=== PATIENT | female | born 1965 | race Caucasian/White ===

== ENCOUNTER 2019-05-20 13:11 | Emergency (ER) | payer OTHER, SELFPAY ==
[2019-05-20] VITALS (23 sets, daily range): BP systolic 104–126; BP diastolic 60–87; PULSE 79–124; RESP 11–31; TEMP 36.8; O2SAT 96–97
--- NOTE | ~2019-05-20 | CT_ITS ---
EXAMINATION: CT brain wo con DATE: 05/20/2019 13:50 INDICATION: Fall. Head injury. TECHNIQUE: Computed tomography (CT) of the head was performed without intravenous contrast. The mA wa s adjusted according to patient size. Iterative reconstruction technique was employed. Exam dose: 60 5.33 mGy-cm total exam DLP. COMPARISON: None FINDINGS: There is a posterior left high parietal cephalhematoma and mild subcutaneous emphysema of t he scalp. No intracranial coup or contrecoup injuries are evident. No skull fracture is detected. N o subdural or epidural hematoma is detected. No intracranial mass lesion or hemorrhage or cerebrovascular accident is detected. There is no midlin e shift or mass effect. Bilateral carotid siphon internal carotid artery calcifications. There is nonspecific diminished atte nuation of the cerebral white matter, likely due to chronic small vessel ischemic changes. The included paranasal sinuses and mastoid air cells are normally developed and aerated. IMPRESSION: High right posterior parietal cephalohematoma subcutaneous scalp emphysema; no skull fra cture or acute intracranial finding Reviewed, dictated and finalized at [facility]. Reviewed, dictated and finalized at location B. AL WORK PROFESSOR IMPRESSION: High right posterior parietal cephalohematoma subcutaneous scalp e mphysema; no skull fracture or acute intracranial finding
--- NOTE | ~2019-05-20 | XR_ITS ---
EXAMINATION: XR wrist RT min 3V DATE: 05/20/2019 13:49 INDICATION: Right wrist pain. TECHNIQUE: 4 views of right wrist were obtained. COMPARISON: None. FINDINGS: Bone alignment is normal. No fracture. There is mild osteoarthritis of first carpometacarpa l joint and radiolunate joint. IMPRESSION: 1. Mild polyarticular osteoarthritis. Reviewed, dictated and finalized at location A. BILITATION AIDE
--- NOTE | 2019-05-20 13:18 | ED.OVERDOSE ---
HPI - Overdose General Chief Complaint: Overdose <Stephanie Mccarty MD - Last Filed: 05/20/19 23:35> Stated Complaint: SI <Stephanie Mccarty MD - Last Filed: 05/20/19 23:35> Time Seen by Provider: 05/20/19 13:20 <Stephanie Mccarty MD - Last Filed: 05/20/19 23:35> Source: patient <Stephanie Mccarty MD - Last Filed: 05/20/19 23:35> Mode of arrival: EMS <Stephanie Mccarty MD - Last Filed: 05/20/19 23:35> Limitations: no limitations <Stephanie Mccarty MD - Last Filed: 05/20/19 23:35> History of Present Illness HPI Narrative: The pt is a 53 y/o female who presents to the ED, via EMS, with c/o an intentional OD that occurred this morning. The pt states that she ingested a handful of Lorazepam pills when she got up this morning. She is unable to say how much she took but also notes that she drank half a bottle of Listerine mouth wash last night. The pt states that she ingested these because she wanted to end her life. She says, life is just too much for me and I'm alone . She has 8 siblings and 3 children, but does not live with any of her children. Her son was the one who called EMS today. The pt reports SI and a posterior scalp laceration from falling yesterday, but denies neck pain, CP, ABD pain, HI, cough, HERNANDEZ, or rash. She states that she has never tried to kill herself before and that her Tetanus shot is up to date. She has a PMHx of depression and anxiety and her PCP is Dr. Neptali Machuca at [facility]. <Stephanie Mccarty MD - Last Filed: 05/20/19 23:35> MD complaint: intentional overdose <Stephanie Mccarty MD - Last Filed: 05/20/19 23:35> Onset (ago): hour(s) (this morning) <Stephanie Mccarty MD - Last Filed: 05/20/19 23:35> Intent: suicide attempt <Stephanie Mccarty MD - Last Filed: 05/20/19 23:35> Context: Intentional Overdose: other ( life is too much for me and I'm alone ) <Stephanie Mccarty MD - Last Filed: 05/20/19 23:35> Associated symptoms: other (SI, posterior scalp laceration) <Stephanie Mccarty MD - Last Filed: 05/20/19 23:35> Related Data Home Medications: Home Medications Medication Instructions Recorded Confirmed alprazolam 05/20/19 clomipramine 05/20/19 clonazepam 05/20/19 ergocalciferol (vitamin D2) 05/20/19 ferrous sulfate 05/20/19 levothyroxine 05/20/19 lorazepam 05/20/19 paroxetine HCl mg PO 05/20/19 <Stephanie Mccarty MD - Last Filed: 05/20/19 23:35> Allergies/Adverse Reactions: Allergies Allergy/AdvReac Type Severity Reaction Status Date / Time No Known Allergies Allergy Verified 05/20/19 17:57 <Stephanie Mccarty MD - Last Filed: 05/20/19 23:35> Review of Systems Review of Systems: Narrative: CARDIOVASCULAR: Denies chest pain. RESPIRATORY: Denies cough. GASTROINTESTINAL: Denies abdominal pain. SKIN: Report posterior scalp laceration. Denies rash. MUSCULOSKELETAL: Denies neck pain. NEUROLOGIC: Denies headache. PSYCHIATRIC: Reports SI. Denies HI. <Stephanie Mccarty MD - Last Filed: 05/20/19 23:35> All systems reviewed & are unremarkable except as noted in HPI and below <Stephanie Mccarty MD - Last Filed: 05/20/19 23:35> [facility] Past Medical History Medical History: Medical History (Updated 05/20/19 @ 20:57 by Stephanie Mccarty MD) Anxiety Depression <Stephanie Mccarty MD - Last Filed: 05/20/19 23:35> Surgical History Surgical History: Surgical History (Updated 05/20/19 @ 14:13 by Shabana Vickers) No pertinent past surgical history <Stephanie Mccarty MD - Last Filed: 05/20/19 23:35> Social History Social History: Social History (Updated 05/20/19 @ 14:13 by Shabana Vickers) Smoking status: Current every day smoker <Stephanie Mccarty MD - Last Filed: 05/20/19 23:35> Exam Narrative: Exam Narrative: GENERAL: Well-appearing, well-nourished, and in no acute distress. HEAD: Abrasion and boggy hematoma to posterior scalp. No laceration.
--- NOTE | 2019-05-20 13:18 | ECG_ITS ---
Measurements Intervals [place] Rate: 98 P: 63 [place]: 130 QRS: 42 QRSD: 90 T: 58 QT: 337 QTc: 431 Interpretive Statements SINUS RHYTHM POSSIBLE LEFT ATRIAL ENLARGEMENT NONSPECIFIC ST & T-WAVE ABNORMALITY- INF/LAT LEADS BORDERLINE ECG Electronically Signed On 05-20-2019 15:40:51 CYBER INSTRUCTOR by Truong Lehman D.O.
[2019-05-20] MEDS: SODIUM CHLORIDE 0.9% IV 1,000 ML 999 ML IV CONT (13:44)
[2019-05-20 14:03] LABS: Glucose Point of Care 75 (65-105)
--- NOTE | 2019-05-20 14:05 | PC.NURSE ---
[place] [facility] notified of pt's overdose - discussed with MARIA L Perkins, who had no new recommendations or orders from what was already being done. Maddie stated that she would follow up and call back Harman this afternoon with lab updates.
[2019-05-20 14:11] LABS: Basophils Percent Auto 0.6 % (0.2-1.2); Eosinophils Absolute Auto 0.1 K/mm3 (0-0.3); Eosinophils Percent Auto 0.8 % (0-4.4); Hematocrit 35.2 % (37.0-47.0); Hemoglobin 11.9 g/dL (12.0-15.0); Immature Granulocyte Absolute 0.02 K/mm3 (0.00-0.031); Immature Granulocyte Percent A 0.3 % (0-0.5); Lymphocytes Absolute Auto 1.85 K/mm3 (0.9-3.2); Lymphocytes Percent Auto 29.6 % (18.3-44.2); Mean Corpuscular HGB Conc 33.8 g/dl (32-36); Mean Corpuscular Volume 91.7 fl (80-100); Mean Platelet Volume 8.2 fl (7.4-10.4); Monocytes Absolute Auto 0.4 K/mm3 (0.1-0.6); Monocytes Percent Auto 6.2 % (2.6-8.5); Neutrophils Absolute Auto 3.9 K/mm3 (1.3-6.7); Neutrophils Percent Auto 62.5 % (45.5-73.1); Platelet Count Result 308 k/mm3 (150-375); Red Blood Count 3.84 M/mm3 (4.2-5.4); Red Cell Distribution Width 13.9 % (11.5-14.5); White Blood Count 6.3 K/mm3 (4.5-10.0)
[2019-05-20 14:24] LABS: Alanine Aminotransferase 21 U/L (4-35); Albumin Level 4.3 g/dL (3.5-5.1); Alkaline Phosphatase 88 U/L (38-126); Aspartate Amino Transferase 45 U/L (14-36); Bilirubin,Total 0.1 mg/dL (0.2-1.3); Blood Urea Nitrogen 11 mg/dL (7-17); Calcium 8.5 mg/dL (8.4-10.2); Carbon Dioxide 23 mmol/L (22-30); Chloride 100 mmol/L (98-107); Creatine Kinase 201 U/L (30-135); Estimated CRCL calculation 60 ml/min; Estimated Glomerular Filt Rate > 60; Glucose 79 mg/dL (65-105); Potassium 4.1 mmol/L (3.4-5.0); Sodium 137 mmol/L (137-145)
[2019-05-20 14:29] LABS: Acetaminophen < 10 ug/mL (10-30); Ethanol 266 mg/dL (<10); Salicylate 1.1 mg/dL (2-20)
[2019-05-20 15:11] LABS: Thyroid Stimulating Hormone Reflex 0.915 uIU/mL (0.465-4.68)
[2019-05-20 15:29] LABS: Add Urine Microscopic? YES; Appearance Urine Clear (Clear); Bilirubin Urine Negative (Negative); Blood Urine 1+ (Negative); Color Urine Straw (Yellow); Glucose Urine UA Negative (Negative); Ketones Urine Negative (Negative); Leukocyte Esterase Ur 1+ LEU/UL (Negative); Mucus Urine Rare /lpf; Nitrate Urine Negative (Negative); Protein Urine Negative (Negative); RBC Urine 0-2 /hpf (0-2); Specific Grav Ur 1.008 (1.001-1.035); Squamous Epithelial Cell Urine Occasional /hpf (Few); Urobilinogen Urine Negative mg/dL (<2.0); WBC Urine 0-3 /hpf
[2019-05-20 15:42] LABS: Amphetamine Screen Urine Negative (Negative); Barbiturate Screen Urine Negative (Negative); Benzodiazepines Screen Urine Negative (Negative); Cannabinoid Screen Urine Negative (Negative); Cocaine Screen Urine Negative (Negative); Methadone Screen Urine Negative (Negative); Opiate Screen Urine Negative (Negative); Phencyclidine Screen Urine Negative (Negative)
--- NOTE | 2019-05-20 16:37 | PC.NURSE ---
MARIA L Padgett, with [place] [facility] called to check on pt. Toxicology and vital signs and general pt condition reviewed with Dayron. Dayron had no further recommendations or comments at this time.
--- NOTE | 2019-05-20 16:58 | PC.NURSE ---
Talked with MARIA L Padgett, at [place] [facility] who stated that the pt is clear from their standpoint for medical clearance and crisis/psych evaluation. Poison control has no further recommendations or requirements at this time - pt is clear on their end.
--- NOTE | 2019-05-20 17:12 | PC.NURSE ---
Pt's sister, Lucy, called for information. No information provided to Lucy who thought that pt was here due to a fall. Pt states she is not ready to call Lucy or other family back. Lucy's number: [phone].
--- NOTE | 2019-05-20 19:30 | PC.NURSE ---
Assumed care of patient from MARIA L Weller. Patient resting in stretcher in NAD, visitor and sitter at bedside. VSS, call light within reach. Pt ambulated to restroom and back with sitter. Patient denies other needs at this time, will continue to monitor.
[2019-05-20 20:23] LABS: Acetaminophen < 10 ug/mL (10-30); Ethanol 97 mg/dL (<10); Salicylate < 1.0 mg/dL (2-20)
[2019-05-20 22:52] LABS: Ethanol 25 mg/dL (<10)
--- NOTE | 2019-05-20 23:02 | PC.NURSE ---
called crisis [phone] they will send someone out to evaluate pt
[2019-05-21] VITALS (36 sets, daily range): BP systolic 131–163; BP diastolic 77–108; PULSE 70–126; RESP 13–35; TEMP 37–37.1; O2SAT 98–100
--- NOTE | 2019-05-21 00:30 | PC.NURSE ---
Keyanna with Crisis at bedside to evaluate patient, recommends inpatient treatment. Patient agreeable to be transferred at this time.
--- NOTE | 2019-05-21 01:52 | PC.NURSE ---
[facility] called, states their doctor denied admission based on criteria not being met.
[2019-05-21] MEDS: ACETAMINOPHEN 500 MG TABLET 1000 MG PO (01:59)
--- NOTE | 2019-05-21 02:24 | PC.NURSE ---
[facility] requested the following information be faxed: test, SHANE, labs, recent vital signs, UDS, nurse's notes, doctor's notes, medication list, and proof of medical clearance. All information faxed to .
--- NOTE | 2019-05-21 02:36 | PC.NURSE ---
Marvin from [facility] called to state they do not have an appropriate bed for this patient.
--- NOTE | 2019-05-21 05:53 | PC.NURSE ---
Per Alla at [facility] declined this patient. Crisis contacted and updated that patient has been declined at all hospitals.
--- NOTE | 2019-05-21 09:08 | PC.NURSE ---
chart faxed to [facility] in [place] [phone]
--- NOTE | 2019-05-21 10:00 | PC.NURSE ---
chart faxed to [facility]
--- NOTE | 2019-05-21 12:00 | PC.NURSE ---
pt moved to . chart faxed to [facility] in [place]
--- NOTE | 2019-05-21 13:08 | PC.NURSE ---
[facility] contacted ed. pt will be accepted. face sheet and voluntary admission paperwork faxed
--- NOTE | 2019-05-21 15:34 | PC.NURSE ---
pt remains appropriate and cooperative. family at bedside. waiting ems transport to [facility] psych
--- NOTE | 2019-05-21 16:47 | PC.NURSE ---
status update on eta for hayden additional 45 min
--- NOTE | 2019-05-21 16:58 | PC.NURSE ---
ems delayed states transport will be another hour
--- NOTE | 2019-05-21 17:41 | PC.NURSE ---
[facility] called for status ETA of 183
--- NOTE | 2019-05-21 18:02 | PC.NURSE ---
ems transport again delayed until 1829. pt remains pleasant and cooperative
[2019-05-25 08:28] LABS: Methyl Alcohol Level None Detected (None Detected)
== END 2019-05-21 18:48 ==
PROVIDERS: Emergency Medicine; Emergency Provider Emergency Medicine
DX: T42.4X2A Poisoning by benzodiazepines, intentional self-harm, initial encounter (principal); F10.10 Alcohol abuse, uncomplicated; F41.9 Anxiety disorder, unspecified; F32.9 Major depressive disorder, single episode, unspecified; M19.031 Primary osteoarthritis, right wrist; Y90.8 Blood alcohol level of 240 mg/100 ml or more
CPT/HCPCS: 36415; 70450; 73110; 80053; 80307; 81001; 81025; 82550; 82948; 84443; 84600; 85025; 93005; 96360; 99285; A9270; J7030

== ENCOUNTER 2020-03-20 11:16 | Observation (INO) | payer SELFPAY ==
[2020-03-20] VITALS (11 sets, daily range): BP systolic 80–130; BP diastolic 57–86; PULSE 70–133; RESP 16–20; TEMP 36.4–36.8; O2SAT 94–100; BMI 28.0
--- NOTE | ~2020-03-20 | CT_ITS ---
EXAMINATION: CT BRAIN W/O DATE: 03/20/2020 12:49 INDICATION: Head injury after fall TECHNIQUE: Computed tomography (CT) of the head was performed without intravenous contrast. The dose- length product was 605.33 mGy-cm. Automated exposure control and iterative reconstruction technique w ere employed. COMPARISON: CT dated 05/20/2019 FINDINGS: Normal brain parenchymal volume for age. Normal lebron-white differentiation. No acute intrac ranial hemorrhage, infarction, mass or mass effect. No ventriculomegaly or midline shift. Midline sagittal images demonstrate a normal corpus callosum, c raniovertebral junction and sella turcica. Basilar cisterns are patent. Paranasal sinuses and mastoids are pneumatized. No depressed skull fractures. IMPRESSION: 1. No acute intracranial abnormality. Reviewed, dictated and finalized at location A. LESOFT HCM DEVELOPER
--- NOTE | ~2020-03-20 | US_ITS ---
EXAMINATION: US carotid duplex BI DATE: 03/21/2020 14:26 INDICATION: Vertigo. Loss of balance. TECHNIQUE: Grayscale, color Doppler, and pulsed Doppler images of the cervical carotid arteries were obtained. The degree of vessel stenosis is placed in one of the following categories: normal, <50%, 5 0-69%, >=70% but less than near-occlusion, near-occlusion, or total occlusion. Note that percent sten osis relative to normal distal artery lumen diameter is indirectly measured from velocity measurement s as described by Cesar, et al. Radiology 2003; 229:340-346. COMPARISON: None. FINDINGS: RIGHT: The right common carotid artery (CCA) peak systolic velocity (PSV) is 73 cm/s. The right internal car otid artery (ICA) PSV is 47 cm/s. The right ICA end-diastolic velocity (EDV) is 19 cm/s. The right IC A/CCA PSV ratio is 0.7. Grayscale and color Doppler images demonstrate no evident stenosis or plaque in the ICA. The external carotid artery (ECA) PSV is 52 cm/s. There is antegrade flow in the right ve rtebral artery. LEFT: The left CCA PSV is 78 cm/s. The left ICA PSV is 52 cm/s. The left ICA EDV is 21 cm/s. The left ICA/C CA PSV ratio is 0.7. Grayscale and color Doppler images of the straight no evident stenosis or plaque in the ICA. The ECA PSV is cm/s. There is antegrade flow in the left vertebral artery. IMPRESSION: 1. No evident plaque or stenosis in the right internal carotid artery. 2. No evident plaque or stenosis in the left internal carotid artery. Reviewed, dictated and finalized at location A. EN FOODS MANAGER
--- NOTE | ~2020-03-20 | MR_ITS ---
EXAMINATION: MR brain/brain stem wo/w con DATE: 03/21/2020 12:49 INDICATION: Syncope. Head injury. TECHNIQUE: Magnetic resonance imaging (MRI) of the brain and brainstem was performed without and with 13 mL MultiHance intravenous contrast. Sequences included sagittal and axial T1-weighted FSE, axial diffusion-weighted FS EPI, axial T2*-weighted GRE, axial T2-weighted FLAIR Propeller, and axial T2-we ighted Propeller. Postcontrast sequences included axial, sagittal, and coronal T1-weighted FSE. Appar ent diffusion coefficient (ADC) maps were created. COMPARISON: Head CT 03/20/2020 FINDINGS: There is no intracranial hemorrhage, acute infarction, or abnormal intracranial mass lesion . The ventricles are normal in size. The paranasal sinuses are clear. The mastoid air cells are kassidy l. The orbits are normal. IMPRESSION: 1. Normal brain. Reviewed, dictated and finalized at location B. ITTER IMPRESSION: 1. Normal brain.
--- NOTE | ~2020-03-20 | CT_ITS ---
EXAMINATION: CT cervical spine wo con DATE: 03/20/2020 12:49 INDICATION: Neck pain after fall TECHNIQUE: Computed tomography (CT) of the cervical spine was performed without intravenous contrast. The dose-length product was 228 mGy-cm. Automated exposure control and iterative reconstruction tech nique were employed. COMPARISON: None FINDINGS: Straightening of cervical lordosis, likely due to muscle spasm or patient positioning. Vert ebral body heights are maintained. No significant disc narrowing. Small marginal osteophytes are pres ent at C6-7. No acute fracture or traumatic malalignment. Mild uncinate degenerative changes at C5-6 and C6-7. Odontoid process within normal limits. No evidence for perched facet. Lung apices are kassidy l. No significant paraspinal soft tissue abnormality. IMPRESSION: 1. No acute abnormality of the cervical spine. Reviewed, dictated and finalized at location A. FIELDER
--- NOTE | 2020-03-20 11:35 | ECG_ITS ---
Measurements Intervals [place] Rate: 80 P: 63 [place]: 114 QRS: 22 QRSD: 93 T: 65 QT: 380 QTc: 439 Interpretive Statements SINUS RHYTHM WITH SHORT FL INTERVAL POSSIBLE LEFT ATRIAL ENLARGEMENT NONSPECIFIC ST & T-WAVE ABNORMALITY- DIFFUSE LEADS BASELINE ARTIFACT- I, II, III, AVR, AVL, V4-V5 BORDERLINE ECG Electronically Signed On 03-20-2020 14:34:13 COAL HAULER by Truong Lehman D.O.
[2020-03-20 11:56] LABS: Basophils Percent Auto 0.4 % (0.2-1.2); Eosinophils Percent Auto 0.3 % (0-4.4); Hemoglobin 12.1 g/dL (12.0-15.0); Immature Granulocyte Absolute 0.03 K/mm3 (0.00-0.031); Immature Granulocyte Percent A 0.4 % (0-0.5); Immature Platelet Fraction Pct 6.3 % (0.9-11.2); Lymphocytes Absolute Auto 1.11 K/mm3 (0.9-3.2); Lymphocytes Percent Auto 14.5 % (18.3-44.2); Mean Corpuscular HGB Conc 35.6 g/dl (32-36); Mean Corpuscular Hemoglobin 32.5 pg (26-34); Mean Corpuscular Volume 91.4 fl (80-100); Monocytes Absolute Auto 0.5 K/mm3 (0.1-0.6); Monocytes Percent Auto 6.1 % (2.6-8.5); Neutrophils Percent Auto 78.3 % (45.5-73.1); Platelet Count Result 110 k/mm3 (150-375); Red Blood Count 3.72 M/mm3 (4.2-5.4); Red Cell Distribution Width 14.4 % (11.5-14.5); White Blood Count 7.7 K/mm3 (4.5-10.0)
[2020-03-20 11:59] LABS: Anion Gap 13 mmol/L (8-16); Blood Urea Nitrogen 18 mg/dL (7-17); Calcium 10.2 mg/dL (8.4-10.2); Carbon Dioxide 28 mmol/L (22-30); Chloride 87 mmol/L (98-107); Estimated CRCL calculation 52 ml/min; Estimated Glomerular Filt Rate 58; Glucose 115 mg/dL (65-105); Potassium 3.6 mmol/L (3.4-5.0); Sodium 128 mmol/L (137-145)
[2020-03-20] MEDS: SODIUM CHLORIDE 0.9% IV 1,000 ML 999 ML IV CONT (12:42)
--- NOTE | 2020-03-20 12:49 | ED.GENADULT ---
HPI - General Adult General Chief complaint: Head Injury Stated complaint: fall/loss of balance Time Seen by Provider: 03/20/20 12:10 Source: patient Mode of arrival: ambulatory Limitations: no limitations History of Present Illness HPI narrative: Patient is a 54-year-old female complaining of frequent falls and loss of balance for the past 2 weeks. Patient denies any speech or visual disturbance, weakness, numbness, chest pain, shortness of breath, abdominal pain, nausea, vomiting, diarrhea, fever or chills. Related Data Home Medications Medication Instructions Recorded Confirmed buspirone mg 03/20/20 levothyroxine 03/20/20 paroxetine HCl mg PO 03/20/20 03/20/20 Allergies Allergy/AdvReac Type Severity Reaction Status Date / Time No Known Allergies Allergy Verified 03/20/20 11:23 Review of Systems Review of Systems: All systems reviewed & are unremarkable except as noted in HPI and below Constitutional: Constitutional: Denies body ache(s), Denies chills, Denies excessive sweating, Denies fatigue, Denies fever(s), Denies headache(s), Denies lethargy, Denies malaise, Denies weakness and Denies weight loss Eyes: Eyes: Denies blurry vision, Denies change in vision and Denies loss of vision ENT: Denies dizziness, Denies ear discharge, Denies headache(s), Denies lip swelling, Denies epistaxis, Denies nasal congestion, Denies neck pain, Denies throat swelling and Denies tongue swelling Cardiovascular: Cardiovascular: Denies chest pain, Denies chest pain at rest, Denies chest pain with activity, Denies diaphoresis, Denies rapid heart rate, Denies edema, Denies irregular heart rhythm, Denies lightheadedness, Denies palpitations, Denies dyspnea and Denies dyspnea on exertion Respiratory: Respiratory: Denies chest congestion, Denies cough, Denies hemoptysis, Denies dyspnea and Denies dyspnea on exertion Gastrointestinal: Gastrointestinal: Denies abdominal pain, Denies melena, Denies hematochezia, Denies diarrhea, Denies nausea, Denies vomiting and Denies hematemesis Musculoskeletal: Musculoskeletal: Denies abnormal gait, Denies deformity, Denies joint swelling, Denies limited range of motion, Denies neck pain and Denies numbness Neurologic: Denies Abnormal speech present, Denies confusion, Denies dizziness, Denies headache(s), Denies focal weakness, Denies loss of vision, Denies numbness, Denies Other visual disturbances, Denies Sensory deficit (Neuro) and Denies weakness Psychiatric: Psychiatric: Denies confusion, Denies depression, Denies auditory hallucinations, Denies homicidal ideation and Denies suicidal ideation Endocrine: Endocrine: Denies cold intolerance, Denies excessive sweating, Denies fatigue, Denies heat intolerance and Denies palpitations Hematologic/Lymphatic: Hematologic/Lymphatic: Denies easy bleeding and Denies easy bruising Allergic/Immunologic: Allergic/Immunologic: Denies lip swelling, Denies throat swelling and Denies tongue swelling PMFSH Past Medical History Medical History (Updated 03/20/20 @ 13:52 by Liam Carballo MD) Anxiety Depression Surgical History Surgical History (Updated 05/20/19 @ 14:13 by Shabana Vickers) No pertinent past surgical history Social History Social History (Updated 05/20/19 @ 14:13 by Shabana Vickers) Smoking status: Current every day smoker Gender identity (if verbalized by the patient): Female Exam Const: General: cooperative, healthy appearing, comfortable, no acute distress, well developed, alert and awake; No confusion Orientation/consciousness: oriented to person, oriented to place, oriented to time, patient oriented x3 and No confusion Limitations: no limitations HENMT: Head: normal to inspection, normocephalic and atraumatic Ears: hearing grossly normal bilaterally, TM normal on the right and TM normal on the left General nose exam: Normal external nose present, Normal nares present and No nasal discharge present Face and sinus
[2020-03-20 13:13] LABS: Add Urine Microscopic? YES; Appearance Urine Clear (Clear); Bacteria Urine Trace /hpf; Bilirubin Urine Negative (Negative); Blood Urine 2+ (Negative); Color Urine Yellow (Yellow); Glucose Urine UA Negative (Negative); Ketones Urine 1+ mg/dL (Negative); Leukocyte Esterase Ur 1+ LEU/UL (Negative); Mucus Urine Rare /lpf; Nitrate Urine Negative (Negative); Protein Urine 2+ mg/dL (Negative); Specific Grav Ur 1.017 (1.001-1.035); Squamous Epithelial Cell Urine Many /hpf (Few)
--- NOTE | 2020-03-20 13:39 | PC.NURSE ---
called chem, kae victoria TSH [id number]
--- NOTE | 2020-03-20 13:56 | PC.NURSE ---
called chem, added on EtOH [id number]
[2020-03-20 14:06] LABS: Ethanol < 10 mg/dL (<10)
--- NOTE | 2020-03-20 16:05 | ADMGEN ---
This patient, Jose Ellison, was admitted to Medical Room 251-01. Patient/family oriented to hospital policies and general routines including ID bracelet, bed and alarms, visiting hours, pain management, procedures, bathroom and other care routines, personal items, smoking policy, room service/diet, and visiting hours. Information on how to activate the Rapid Response Team has been discussed. Patient/Family are encouraged to report perceived risks to care and to ask questions if they do not understand what they are told or what they should do.
[2020-03-21] VITALS (8 sets, daily range): BP systolic 115–137; BP diastolic 81–85; PULSE 52–118; RESP 15–21; TEMP 36.4–36.8; O2SAT 99–100
--- NOTE | 2020-03-21 | ECHO_ITS ---
Patient Info Name: Jose Ellison Age: 54 years : 1965 Gender: Female Ht: 62 in Wt: 153 lbs BSA: 1.76 m2 HR: 76 bpm BP: 130 / 86 mmHg Heart Rhythm: Sinus Rhythm Technical Quality: Good Exam Date: 03/21/2020 9:39 AM Exam Location: [facility] Patient Status: Inpatient Admit Date: 03/20/2020 Staff Ordering Physician: Estela Chan NP Professor Of Fine Art: Nick Alvarado RDCS Attending Provider: Marcio Magallon PA-C Referring Physician: Rocio SHELTON; Exam Type: CA echo dop color flow w con Study Info Indications R94.31 - Abnormal electrocardiogram ECG EKG Complete two-dimensional, color flow and Doppler transthoracic echocardiogram is performed with contrast to opacify the left ventricle and to improve the deliniation of the left ventricle endocardial borders. Contrast/Agitated Saline Contrast/Ag. Saline: Definity Amount: 2.00 ml Administered By: Maribell tSark RN Existing IV Access: Yes History/Risk Factors Abnormal EKG, orthostatic HoTN. Summary 1. Left ventricular chamber dimension is normal. 2. Left ventricular systolic function is normal, estimated at 60-65%. 3. There is mildly increased left ventricular wall thickness. 4. The left ventricular diastolic function is grade I diastolic dysfunction. 5. E/e' 7 is not elevated. 6. There is trace tricuspid valve regurgitation. Left Ventricle E/e' 7 is not elevated. Left ventricular chamber dimension is normal. Left ventricular systolic function is normal, estimated at 60-65%. There is mildly increased left ventricular wall thickness. The left ventricular diastolic function is grade I diastolic dysfunction. Right Ventricle Right ventricular chamber dimension is normal. Right ventricular systolic function is normal. Left Atria Left atrial chamber dimension is normal. Right Atria Right atrial chamber dimension is normal. Aortic Valve The aortic valve is probable trileaflet. There is no aortic valve stenosis. There is no aortic valve regurgitation. Pulmonic Valve There is no pulmonic regurgitation. Mitral Valve There is no mitral valve stenosis. There is no mitral valve regurgitation. Tricuspid Valve RVSP is not calculated due to an inadequate TR jet. There is trace tricuspid valve regurgitation. Pericardium/Pleural There is no pericardial effusion. Inferior Vena Cava Normal inferior vena cava with >50% collapse upon inspiration consistent with normal right atrial pressure, 5 mmHg. Aorta The aortic root size at the sinus of Valsalva is normal. Tricuspid Valve Name Value Normal Estimated PAP/RSVP RA Pressure 5 mmHg <=5 Report Signatures
--- NOTE | 2020-03-21 00:09 | PM.IMHP ---
H&P: HPI History of Present Illness Date/Time: 03/20/20 6820 Chief complaint: Orthostatic Hypotension/T Wave Abnormality Narrative: Jose Ellison is a 54 year old female who has a history of anxiety with depression. She also has a history of hypothyroidism. The patient stated that she lost her job when COVID for started she was not able to afford her medications and she just stopped them abruptly. The patient said the last 3 weeks she restarted her medication but has not been faithful with it. She said she probably has not taken her thyroid medicine for the last week. The patient has been losing her balance for the last 2 weeks. No visual or speech problems no weakness numbness no chest pain no shortness of breath. The patient tells me that she drinks approximately 9000 mL of water a day. She told me that she could feel her blood pressure drop when she would go from a sitting to standing position. The patient stated that she lost her balance and read into the wall. She was not sure if she lost consciousness or not. The patient fell and has bruising to both arise in her nose. Platelets are 110 all. Sodium level 128. CT of the brain shows no acute intracranial abnormality. Patient denies any visual disturbances at this time. Cervical spine CT no acute abnormalities the cervical spine. Patient's blood pressure initially was 102/57 she was given IV fluids her blood pressure is now 130/86. Blood pressure got down as low as 80/66. Patient's urine has 1+ leukocytes however she has many squamous cell which could probably be contaminant. No antibiotics were started at this time. IV fluids in the emergency room. The patient is being admitted into observation statin day since 03/21/2020 Review of Systems Review of Systems: All systems reviewed & are unremarkable except as noted in HPI and below Constitutional: Constitutional: Reports as per HPI and Reports no additional constitutional complaints Eyes: Eyes: Reports as per HPI and Reports no additional eye complaints ENT: Reports system reviewed and no additional complaints, except as documented and Reports Normal hearing present Cardiovascular: Cardiovascular: Reports no additional cardiovascular complaints Respiratory: Respiratory: Reports no additional respiratory complaints and Reports no additional respiratory complaints Gastrointestinal: Gastrointestinal: Reports as per HPI and Reports no additional gastrointestinal complaints Musculoskeletal: Musculoskeletal: Reports no additional musculoskeletal complaints Integumentary/Breasts: Skin/Breast: Reports system reviewed and no additional complaints, except as docu and Reports as per HPI Neurologic: Reports system reviewed and no additional complaints, except as documented, Reports as per HPI and Reports Normal hearing present Psychiatric: Psychiatric: Reports no additional psychiatric complaints and Reports as per HPI Endocrine: Endocrine: Reports no additional endocrine complaints Hematologic/Lymphatic: Hematologic/Lymphatic: Reports no additional hematologic/lymphatic complaints Allergic/Immunologic: Allergic/Immunologic: Reports no additional allergic/immunologic complaints PMFSH Past Medical History Medical History (Updated 03/21/20 @ 00:19 by Estela Chan NP) Anxiety Depression Hypothyroidism Surgical History Surgical History (Updated 03/21/20 @ 00:18 by Estela Chan NP) History of tonsillectomy and adenoidectomy Family History Family History Mother Colon cancer Father Diabetes mellitus COPD (chronic obstructive pulmonary disease) Sibling Diabetes mellitus Hypertension High cholesterol Alzheimer disease Dementia Social History Social History (Updated 03/21/20 @ 00:21 by Estela Chan NP) Social History: The patient is currently unemployed and 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 Sh
[2020-03-21 03:03] LABS: Basophils Percent Auto 0.6 % (0.2-1.2); Eosinophils Absolute Auto 0.2 K/mm3 (0-0.3); Eosinophils Percent Auto 3.8 % (0-4.4); Hematocrit 33.7 % (37.0-47.0); Hemoglobin 11.8 g/dL (12.0-15.0); Immature Granulocyte Absolute 0.02 K/mm3 (0.00-0.031); Immature Granulocyte Percent A 0.4 % (0-0.5); Lymphocytes Absolute Auto 1.94 K/mm3 (0.9-3.2); Mean Corpuscular Hemoglobin 32.4 pg (26-34); Mean Corpuscular Volume 92.6 fl (80-100); Mean Platelet Volume 10.4 fl (7.4-10.4); Monocytes Absolute Auto 0.4 K/mm3 (0.1-0.6); Monocytes Percent Auto 8.5 % (2.6-8.5); Neutrophils Absolute Auto 2.2 K/mm3 (1.3-6.7); Neutrophils Percent Auto 45.7 % (45.5-73.1); Platelet Count Result 99 k/mm3 (150-375); Red Blood Count 3.64 M/mm3 (4.2-5.4); Red Cell Distribution Width 14.6 % (11.5-14.5); White Blood Count 4.7 K/mm3 (4.5-10.0)
[2020-03-21 03:18] LABS: Lactic Acid Reflex 0.7 mmol/L (0.7-2.1)
[2020-03-21 03:19] LABS: Alanine Aminotransferase 48 U/L (4-35); Alkaline Phosphatase 68 U/L (38-126); Anion Gap 5 mmol/L (8-16); Aspartate Amino Transferase 88 U/L (14-36); Bilirubin,Total 0.8 mg/dL (0.2-1.3); Blood Urea Nitrogen 15 mg/dL (7-17); Calcium 9.7 mg/dL (8.4-10.2); Carbon Dioxide 32 mmol/L (22-30); Chloride 95 mmol/L (98-107); Estimated CRCL calculation 57 ml/min; Estimated Glomerular Filt Rate > 60; Glucose 90 mg/dL (65-105); Magnesium 1.6 mg/dL (1.6-2.3); Potassium 3.6 mmol/L (3.4-5.0); Sodium 132 mmol/L (137-145)
[2020-03-21 03:49] LABS: Cortisol Random 7.59 ug/dL
[2020-03-21 04:39] LABS: Free T4 Free Thyroxine 0.34 ng/mL (0.78-2.19)
[2020-03-21] MEDS: SODIUM CHLORIDE 0.9% IV 1,000 ML 100 ML IV CONT (05:30)
[2020-03-21] MEDS: LEVOTHYROXINE SODIUM 150 MCG TABLET PO (05:32)
[2020-03-21 06:15] LABS: Amphetamine Screen Urine Negative (Negative); Barbiturate Screen Urine Negative (Negative); Benzodiazepines Screen Urine Negative (Negative); Cannabinoid Screen Urine Negative (Negative); Cocaine Screen Urine Negative (Negative); Methadone Screen Urine Negative (Negative); Opiate Screen Urine Negative (Negative); Phencyclidine Screen Urine Negative (Negative)
[2020-03-21] MEDS: busPIRone HCL 10 MG TABLET PO (08:08)
[2020-03-21] MEDS: PARoxetine 10 MG TABLET PO (08:08)
--- NOTE | 2020-03-21 10:04 | PM.IMPN ---
Progress Note: A&P Assessment and Plan (1) Unsteady gait: Code(s): R26.81 - Unsteadiness on feet Status: Acute Assessment and Plan: Most likely is related to her hyponatremia and hypothyroidism. CT brain unremarkable. MRI brain, carotid duplex, echo awaiting to be done. Orthostatic blood pressures have improved but still positive; asymptomatic this morning PT/OT ordered Will await imaging studies Possibly discharge in 1-2 days (2) Hyponatremia: Code(s): E87.1 - Hypo-osmolality and hyponatremia Status: Acute Assessment and Plan: Multifactorial. Likely from hypothyroidism and noncompliance with medication as she was unable to refill her prescriptions for 3 weeks. Also increased free water intake, although it seems as though she may only drink 8-9 bottles of water a day which is much less then previously described as 8-9 L. Also takes SSRI. Na 132 today. improvement Will monitor this afternoon F/u as outpatient Will advice for ~2 L water a day to stay hydrate Anticipate this improve with reinitiation of levothyroxine (3) Anxiety: Code(s): F41.9 - Anxiety disorder, unspecified Status: Chronic Assessment and Plan: Continue with BuSpar and Paxil. (4) Depression: Code(s): F32.9 - Major depressive disorder, single episode, unspecified Status: Chronic Assessment and Plan: Continue BuSpar and Paxil. (5) Hypothyroidism: Code(s): E03.9 - Hypothyroidism, unspecified Status: Chronic Assessment and Plan: Patient unable to refill her prescription due to apparent financial issues. Home Levothyroxine as been resumed Continue home levothyroxine Will recheck TSH with reflex in 4 weeks F/u with PCP. Subjective Date/time seen: 03/21/20 10:04 Interval history: Patient is a 54 yo F wit history of anxiety/depression and hypothyroidism who is seen in follow up for symptomatic orthostatic hypotension and elevated TSH due to medication noncompliance. Patient states she feels much better today. She was asymptomatic due to her orthostatic blood pressures this morning. She has no other complaints. States she drinks 8-10 bottles of water but thinks these are regular 12 oz bottles but cannot say for sure. She drinks this much to stay hydrated, and denies true polydipsia. No other complaints other a mild headache around her eyes/sinuses from when she hit her head on the wall. Denies f/c/s, current dizziness, lightheadedness, cp/palpitations, sob/cough, n/v/d/c, abd pain, changes in BMs, dysuria, hematuria, cloudy urine, calf pain/swelling. Review of Systems Review of Systems: All systems reviewed & are unremarkable except as noted in HPI and below Exam Narrative: Exam Narrative: General: Patient resting supine in bed in no acute distress. About to have Echo done HEENT: Normocephalic, EOMI, oral mucosa moist. Cardiovascular: Rate and rhythm are regular. No notable murmur, rub, or gallop. Respiratory: Lungs clear to auscultation anterolateral lung giang. Non-labored breathing. Abdomen: Soft, non-tender, non-distended, bowel sounds present. Extremities: Peripheral pulses intact. No edema. NTTP b/l calves Neuro: No focal neurological deficits. Speech is clear. Objective Data Vital Signs Vital Signs: Last Vital Signs Temp 97.6 F 03/21/20 06:06 Pulse 118 H 03/21/20 08:00 Resp 21 H 03/21/20 06:06 BP 115/81 03/21/20 06:06 Pulse Ox 100 03/21/20 06:06 Intake/Output Intake/Output: Intake & Output 03/18/20 03/19/20 03/20/20 03/21/20 23:59 23:59 23:59 23:59 Intake Total 1790 1168 Output Total 700 Balance 1790 468 Meds/Results Medications: Active Medications Generic Name Dose Route Start Last Admin Trade Name Freq PRN R
--- NOTE | 2020-03-21 13:35 | PM.DS ---
DS: Admitting Diagnosis Admitting Diagnosis Admitting Diagnosis: Orthostatic Hypotension/T Wave Abnormality DS: Discharge Diagnosis Discharge Diagnosis (1) Unsteady gait: Code(s): R26.81 - Unsteadiness on feet Status: Acute Assessment and Plan: Most likely is related to her hyponatremia and hypothyroidism. CT brain unremarkable. MRI brain unremarkable. Echo unremarkable. Carotid duplex pending. Orthostatic blood pressures have improved but still slightly positive; asymptomatic this morning, however. Discussed discharge today after afternoon BMP. Patient agreeable and comfortable. PT/OT ordered and have discharged as she has no needs D/c today back home Recommended no driving until f/u with PCP (2) Hyponatremia: Code(s): E87.1 - Hypo-osmolality and hyponatremia Status: Acute Assessment and Plan: Multifactorial. Likely from hypothyroidism and noncompliance with medication as she was unable to refill her prescriptions for 3 weeks. Also increased free water intake, although it seems as though she may only drink 8-9 bottles of water a day which is much less then previously described (8-9 L noted previously). Also takes SSRI. Na 133 this afternoon. improvement Will monitor this afternoon F/u outpatient labs and with PCP Discussed drinking ~2 L water a day to stay hydrated Anticipate this will improve with reinitiation of levothyroxine (3) Anxiety: Code(s): F41.9 - Anxiety disorder, unspecified Status: Chronic Assessment and Plan: Continue with BuSpar and Paxil. (4) Depression: Code(s): F32.9 - Major depressive disorder, single episode, unspecified Status: Chronic Assessment and Plan: Continue BuSpar and Paxil. (5) Hypothyroidism: Code(s): E03.9 - Hypothyroidism, unspecified Status: Chronic Assessment and Plan: Patient unable to refill her prescription due to apparent financial issues. Home Levothyroxine as been resumed Continue home levothyroxine Will recheck TSH with reflex in 4 weeks F/u with PCP. DS: Summary Hospital Course Reason for hospitalization: hyponatremia, orthostatic hypotension. Fall at home Hospital Course: Date of arrival: 03/20/20 Date of discharge: 03/21/20 Patient is a 54 yo F with history of anxiety/depression and hypothyroidism who presented to the ED on 03/20 with complaints of frequent falls and loss of balance the previous 2 weeks. Patient was found to be orthostatic and hyponatremic while in the ED. Patient admitted under this setting. Please see H&P for further details. Patient was admitted to the hospitalist service for further management/treatment. Patient had admitted that she had stopped taking her home medications as she was having some financial issues at home. She had missed roughly 3 weeks of her levothyroxine. She was placed back on this medication after her TSH was found to be 49.8 and free T4 of 0.34; she was to recheck her TSH in 4 weeks. In regards to her orthostasis, she was given IV fluids while in the ED, but then was placed on fluid restricted diet as it was felt that patient likely had hypervolemic hyponatremia with component of hypothyroidism lowering sodium levels, as well as, her SSRI. The following day, her orthostasis had improved but still present, but she was now asymptomatic. Her sodium had improved from 128 on arrival to 132 on morning of discharge then 133 on afternoon of discharge. Stroke work up proved unremarkable with MR of brain, Echo, and carotid doppler. Given her improvement in her symptoms and with her hyponatremia, plan was for her to follow up with her PCP, to repeat BMP in 1 week, and to drink no more than 2L of water. Patient and family were agreeable and comfortable with plan f
[2020-03-21 14:22] LABS: Anion Gap 8 mmol/L (8-16); Blood Urea Nitrogen 20 mg/dL (7-17); Calcium 9.7 mg/dL (8.4-10.2); Carbon Dioxide 29 mmol/L (22-30); Chloride 96 mmol/L (98-107); Estimated CRCL calculation 57 ml/min; Estimated Glomerular Filt Rate > 60; Glucose 88 mg/dL (65-105); Potassium 3.7 mmol/L (3.4-5.0); Sodium 133 mmol/L (137-145)
[2020-03-23 00:47] LABS: Osmolality, Urine 122 mOsm/kg (50-1200)
== END 2020-03-21 16:30 | disposition home or self-care (01) ==
LOC: ANHED 13:52 → ANH2MED 14:34
PROVIDERS: Emergency Medicine; Nurse Practitioner; Physician Assistant; Admitting Provider Internal Medicine; Emergency Provider Emergency Medicine; PCP Internal Medicine; Visit Provider Family Medicine
DX: I95.1 Orthostatic hypotension (principal); E87.1 Hypo-osmolality and hyponatremia; S09.90XA Unspecified injury of head, initial encounter; W19.XXXA Unspecified fall, initial encounter; F41.8 Other specified anxiety disorders; E03.9 Hypothyroidism, unspecified; F32.9 Major depressive disorder, single episode, unspecified; M54.2 Cervicalgia; R29.6 Repeated falls; R94.31 Abnormal electrocardiogram [ECG] [EKG]; Z91.14 Patient's other noncompliance with medication regimen; Z91.81 History of falling
CPT/HCPCS: 36415; 70450; 70553; 72125; 80048; 80053; 80307; 81001; 81025; 82533; 83605; 83735; 83935; 84439; 84443; 85025; 85055; 93005; 93880; 96360; 96361; 97161; 97165; 99285; A9270; A9577; C8929; G0378; J7030; Q9957

== ENCOUNTER 2022-06-04 18:08 | Emergency (ER) | payer MEDICAID, SELFPAY ==
[2022-06-04 18:08] VITALS: BP 113/95; PULSE 123; RESP 17; TEMP 37.6; O2SAT 97
[2022-06-04 18:35] LABS: Glucose Point of Care 91 mg/dl (65-105)
[2022-06-04 18:54] LABS: Basophils Absolute Auto 0.1 K/mm3 (0.0-0.1); Basophils Percent Auto 0.6 % (0.2-1.2); Hematocrit 37.2 % (37.0-47.0); Hemoglobin 12.5 g/dL (12.0-15.0); Immature Granulocyte Absolute 0.03 K/mm3 (0.00-0.031); Immature Granulocyte Percent A 0.4 % (0-0.5); Lymphocytes Absolute Auto 2.72 K/mm3 (0.9-3.2); Lymphocytes Percent Auto 33.7 % (18.3-44.2); Mean Corpuscular HGB Conc 33.6 g/dl (32-36); Mean Corpuscular Volume 89.2 fl (80-100); Mean Platelet Volume 8.9 fl (7.4-10.4); Monocytes Absolute Auto 0.5 K/mm3 (0.1-0.6); Monocytes Percent Auto 5.6 % (2.6-8.5); Neutrophils Absolute Auto 4.8 K/mm3 (1.3-6.7); Neutrophils Percent Auto 59.7 % (45.5-73.1); Platelet Count Result 194 k/mm3 (150-375); Red Blood Count 4.17 M/mm3 (4.2-5.4); Red Cell Distribution Width 13.3 % (11.5-14.5); White Blood Count 8.1 K/mm3 (4.5-10.0)
[2022-06-04] MEDS: SODIUM CHLORIDE 0.9% IV 1,000 ML 999 ML IV CONT (18:57)
[2022-06-04 18:59] VITALS: BP 141/88; PULSE 109; RESP 24; O2SAT 96
[2022-06-04 19:13] LABS: Alanine Aminotransferase 49 U/L (6-35); Alkaline Phosphatase 90 U/L (38-126); Anion Gap 16 mmol/L (8-16); Aspartate Amino Transferase 82 U/L (14-36); Bilirubin,Total 0.4 mg/dL (0.2-1.3); Blood Urea Nitrogen 18 mg/dL (7-17); Calcium 7.9 mg/dL (8.4-10.2); Carbon Dioxide 20 mmol/L (22-30); Chloride 108 mmol/L (98-107); Estimated CRCL calculation 64 ml/min; Estimated Glomerular Filt Rate > 60; Glucose 84 mg/dL (65-110); Potassium 4.2 mmol/L (3.4-5.0); Sodium 144 mmol/L (137-145)
[2022-06-04 19:16] LABS: Amphetamine Screen Urine Negative (Negative); Barbiturate Screen Urine Negative (Negative); Benzodiazepines Screen Urine Negative (Negative); Cannabinoid Screen Urine Negative (Negative); Cocaine Screen Urine Negative (Negative); Methadone Screen Urine Negative (Negative); Opiate Screen Urine Negative (Negative); Phencyclidine Screen Urine Negative (Negative)
[2022-06-04 19:25] LABS: Ethanol 347 mg/dL (<10)
[2022-06-04 19:30] LABS: Influenza A QL RT-PCR Negative (Negative); Influenza B QL RT-PCR Negative (Negative); RSV RNA, RT-PCR Negative (Negative); SARS-CoV-2 RNA PCR Negative
[2022-06-04 19:42] LABS: Thyroid Stimulating Hormone < 0.015 uIU/mL (0.465-4.680)
--- NOTE | 2022-06-04 19:43 | ED.PSYCH ---
HPI - Psych General Chief Complaint: Psychiatric Symptoms <Zohra Chaudhry MD - Last Filed: 06/04/22 23:20> Stated Complaint: SI, intoxicated <Zohra Chaudhry MD - Last Filed: 06/04/22 23:20> Time Seen by Provider: 06/04/22 19:35 <Zohra Chaudhry MD - Last Filed: 06/04/22 23:20> Source: patient and EMS <Zohra Chaudhry MD - Last Filed: 06/04/22 23:20> Mode of arrival: EMS <Zohra Chaudhry MD - Last Filed: 06/04/22 23:20> Limitations: no limitations <Zohra Chaudhry MD - Last Filed: 06/04/22 23:20> History of Present Illness HPI Narrative: Patient is 56 years old white female came from home by ambulance with severe depression, hopelessness and suicidal attempts by drinking too much alcohol. Patient is telling me she drank roughly 5-6 bottles of Listerine today. And been doing that daily for the last 7 days. History of depression, last psych hospitalization was 3 years ago. She denies any fever, chills, nausea, vomiting. <Zohra Chaudhry MD - Last Filed: 06/04/22 23:20> Related Data Allergies/Adverse Reactions: Allergies Allergy/AdvReac Type Severity Reaction Status Date / Time No Known Allergies Allergy Verified 06/04/22 18:34 <Zohra Chaudhry MD - Last Filed: 06/04/22 23:20> [facility] Past Medical History Medical History: Medical History (Updated 06/04/22 @ 19:47 by Zohra Chaudhry MD) Anxiety Depression Hypothyroidism <Zohra Chaudhry MD - Last Filed: 06/04/22 23:20> Surgical History Surgical History: Surgical History (Updated 03/21/20 @ 00:18 by Estela Chan NP) History of tonsillectomy and adenoidectomy <Zohra Chaudhry MD - Last Filed: 06/04/22 23:20> Family History Family History: Family History Mother Colon cancer Father Diabetes mellitus COPD (chronic obstructive pulmonary disease) Sibling Diabetes mellitus Hypertension High cholesterol Alzheimer disease Dementia <Zohra Chaudhry MD - Last Filed: 06/04/22 23:20> Social History Social History: Social History (Updated 03/21/20 @ 00:21 by Estela Chan NP) Social History: The patient is currently unemployed and 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 She has 3 children but 2 sons live with her and the daughter lives on her own. The patient does not have a durable power assistant county attorney for healthcare and desires to be a full code. The patient is . She denies any alcohol tobacco marijuana or illicit drug use. Smoking status: Never smoker Alcohol intake: current Drinks per week: 1 Substance use: never Substance use type: does not use Gender identity (if verbalized by the patient): Female Spiritual care concerns: No <Zohra Chaudhry MD - Last Filed: 06/04/22 23:20> Course Course Emergency Course: Patient was signed out by Dr. Chaudhry pending repeat alcohol level for medical clearance EtOH is ordered for 7:30 AM the patient has been resting comfortably without difficulty throughout the evening <Juan David Zapata MD - Last Filed: 06/05/22 05:57> Patient was signed out by Dr. Chaudhry pending repeat alcohol level for medical clearance EtOH is ordered for 7:30 AM the patient has been resting comfortably without difficulty throughout the evening 0746: No SI. Clinically sober. Has been seen by [facility]. Contracted for safety. Patient is also supposed to contact the [facility] inpatient detox unit. <Gerardo Fernández MD - Last Filed: 06/05/22 07:53> Consultations Consultation #1: Patient care turned over to Dr. Frida Li at shift change, awaiting repeating alcohol level, and disposition. Patient been resting quietly in the emergency room without any issues or problems. <Zohra Chaudhry MD - Last Filed: 06/04/22 23:20> Date: 06/04/22 <Zohra Chaudhry MD - Last Filed: 06/04/22 23:20> Time: 23:20 <Zohra Chaudhry MD - Last Filed: 06/04/22 23:20>
[2022-06-04 20:36] LABS: Appearance Urine Clear (Clear); Bilirubin Urine Negative (Negative); Blood Urine 2+ (Negative); Color Urine Yellow (Yellow); Glucose Urine UA Negative (Negative); Ketones Urine 2+ mg/dL (Negative); Leukocyte Esterase Ur Negative LEU/UL (Negative); Nitrate Urine Negative (Negative); Protein Urine 2+ mg/dL (Negative); Specific Grav Ur 1.025 (1.001-1.035); Urobilinogen Urine 0.2 mg/dL (<2.0); pH Urine 5.5 (5.0-9.0)
[2022-06-04 20:46] LABS: RBC Urine 0-2 /hpf (0-2); Squamous Epithelial Cell Urine Rare /hpf (Few); WBC Urine 0-3 /hpf
[2022-06-04 20:57] LABS: Add Urine Microscopic? YES
[2022-06-05] MEDS: THIAMINE HCL 200 MG/2 ML VIAL 100 MG IV PUSH (00:32)
[2022-06-05] MEDS: SODIUM CHLORIDE 0.9% IV 1,000 ML 999 ML IV CONT (00:32)
[2022-06-05] MEDS: ONDANSETRON INJ 4 MG/2 ML VIAL IV PUSH (01:38)
[2022-06-05] MEDS: MELATONIN 5 MG TABLET PO (03:33)
[2022-06-05 07:21] LABS: Ethanol 21 mg/dL (<10)
[2022-06-05] MEDS: LORazepam (*CRX) 0.5 MG TABLET PO (07:41)
[2022-06-05 07:42] VITALS: BP 134/64; PULSE 99; RESP 18; O2SAT 97
--- NOTE | 2022-06-05 09:02 | PC.NURSE ---
pt is with [facility] formulating a plan for d/c.
[2022-06-05 09:21] VITALS: RESP 18
== END 2022-06-05 09:23 | disposition home or self-care (01) ==
PROVIDERS: Emergency Medicine; Emergency Provider Emergency Medicine; PCP Internal Medicine
DX: T49.6X2A Poisoning by otorhinolaryngological drugs and preparations, intentional self-harm, initial encounter (principal); F32.A Depression, unspecified; Z20.822 Contact with and (suspected) exposure to COVID-19; F41.9 Anxiety disorder, unspecified; E03.9 Hypothyroidism, unspecified
CPT/HCPCS: 36415; 80053; 80307; 81001; 81025; 82948; 84443; 85025; 87637; 96361; 96374; 96375; 99284; A9270; J2405; J3411; J7030